=== PATIENT | female | born 1960 | race Caucasian/White ===

== ENCOUNTER 2022-01-15 01:17 | Day surgery (SDC) | payer BC, SELFPAY ==
[2021-12-27 14:31] VITALS: BMI 36.6
[2022-01-15 09:21] VITALS: BP 149/92; PULSE 92; RESP 20; TEMP 36.4; O2SAT 95
--- NOTE | 2022-01-15 09:26 | P.PNAN_ITS ---
Anes - Initial Pre Proc Eval Procedure: Operation Date: 01/15/22 10:30 Proposed Procedures p Screening Colonoscopy - Sarath Lao MD Date/Time: 01/15/22 09:26 Surgeon: Sarath Lao MD Pre Op Diagnosis: neoplasm screening Patient Data Age: 61 Gender: F Height: 1.65 m Weight: 105 kg Last Vital Signs Temp 36.4 C L 01/15/22 09:21 Pulse 92 01/15/22 09:21 Resp 20 01/15/22 09:21 BP 149/92 H 01/15/22 09:21 Pulse Ox 95 01/15/22 09:21 O2 Del Method Room Air 01/15/22 09:21 Allergies Allergy/AdvReac Type Severity Reaction Status Date / Time amoxicillin AdvReac Severe Nausea Verified 01/15/22 09:20 Home Medications Medication Instructions Recorded Confirmed Type atorvastatin 20 mg tablet 20 mg PO DAILY #90 tabs 11/09/21 12/27/21 Rx levothyroxine 137 mcg tablet 137 mcg PO DAILY #90 tabs 11/09/21 12/27/21 Rx (Levo-T) lisinopril 20 1 tablet PO DAILY #90 tabs 11/09/21 12/27/21 Rx mg-hydrochlorothiazide 12.5 mg tablet Patient hx anesthesia problems: none Family hx anesthesia problems: none Results Review: All pre-operative results and documents have been reviewed as part of the pre-o perative evaluation. [facility] Past Medical History Medical History Dyslipidemia Hypertension Hypothyroidism IUD (intrauterine device) in place Murmur, cardiac Periodic health assessment, general screening, adult Screening for colon cancer Social History Social History Smoking status: Never smoker Alcohol intake: current Drinks per week: 4 Alcohol use details: wine Substance use: never Living arrangements: with family Gender identity (if verbalized by the patient): Female Spiritual care concerns: No Anes - Eval Final PreProcedure Day of Procedure 01/15/22 09:26 Patient weight: obese Heart: regular rate and rhythm Lungs: clear to auscultation Airway: Mallampati scale class II Neurological: alert and oriented Last oral intake: >/= 8 hours ASA classification: II Emergent: no Anesthetic plan: proceed Anesthesia type and monitoring: general GIVS and standard monitoring Results Review: All pre-operative results and documents have been reviewed as part of the pre- operative evaluation. Informed Consent: The patient's anesthetic plan and its attendant risks and benefits were discussed with the patient/family/POA. Questions were solicited and answers provided to the satisfaction of the patient/family/POA.
[2022-01-15] MEDS: LACTATED RINGERS 1,000 ML 150 ML IV CONT (09:29)
--- NOTE | 2022-01-15 09:46 | PM.HPGS ---
History of Present Illness History of Present Illness Consent: Risks, benefits, and alternatives have been discussed and questions answered. Patient agrees to proceed with procedure. Chief complaint: neoplasm screening Narrative: Jigna Hightower is a 61 year old female presents for screening colonoscopy. Patient's current weight appetite and bowel movements are normal. She denies abdominal pain. She has had no bleeding. Family history is significant for grandparents with colon cancer. There are no first-degree relatives it we are aware of with polyps or cancer. Patient presents today for neoplasia screening. Review of Systems Review of Systems: Review of systems noncontributory. [facility] Past Medical History Medical History Dyslipidemia Hypertension Hypothyroidism IUD (intrauterine device) in place Murmur, cardiac Periodic health assessment, general screening, adult Screening for colon cancer Social History Social History Smoking status: Never smoker Alcohol intake: current Drinks per week: 4 Alcohol use details: wine Substance use: never Living arrangements: with family Gender identity (if verbalized by the patient): Female Spiritual care concerns: No Meds Home Medications and Allergies Home Medications Medication Instructions Recorded Confirmed Type atorvastatin 20 mg tablet 20 mg PO DAILY #90 tabs 11/09/21 12/27/21 Rx levothyroxine 137 mcg tablet 137 mcg PO DAILY #90 tabs 11/09/21 12/27/21 Rx (Levo-T) lisinopril 20 1 tablet PO DAILY #90 tabs 11/09/21 12/27/21 Rx mg-hydrochlorothiazide 12.5 mg tablet Allergies Allergy/AdvReac Type Severity Reaction Status Date / Time amoxicillin AdvReac Severe Nausea Verified 01/15/22 09:20 Vital Signs Vital Signs - 24 hr 01/15/22 09:21 Temperature 97.5 F L Pulse Rate 92 Respiratory Rate 20 Blood Pressure 149/92 H Pulse Oximetry 95 Oxygen Delivery Room Air Exam Narrative: Physical exam reveals patient to be alert. Vital signs stable. HEENT exam is unremarkable. Patient is anicteric. Lungs are clear to auscultation and percussion. Heart is without murmur or extra sounds. Abdomen bowel sounds are present soft nontender with no organomegaly. Digital external rectal exam is normal. Assessment and Plan Assessment and plan (1) Screening for colon cancer: Code(s): Z12.11 - Encounter for screening for malignant neoplasm of colon Status: Acute Assessment and Plan: Patient presents for neoplasia screening colonoscopy. Appears to be at average risk for colon polyps. Further recommendations may be given after endoscopy.
[2022-01-15 10:12] VITALS: BP 97/53; PULSE 74; RESP 21; O2SAT 96
[2022-01-15 10:21] VITALS: BP 118/63; PULSE 68; RESP 18; O2SAT 98
[2022-01-15 10:31] VITALS: BP 145/93; PULSE 73; RESP 16; O2SAT 100
== END 2022-01-15 10:41 | disposition home or self-care (01) ==
PROVIDERS: PCP Physician Assistant Medical; Visit Provider Internal Medicine Gastroenterology
PROC: 0DJD8ZZ Inspection of Lower Intestinal Tract, Via Natural or Artificial Opening Endoscopic (ICD-10-PCS; CPT 45378; principal; 2022-01-15 10:30)
DX: Z12.11 Encounter for screening for malignant neoplasm of colon (principal); K57.30 Diverticulosis of large intestine without perforation or abscess without bleeding; K64.8 Other hemorrhoids; I10 Essential (primary) hypertension; E78.5 Hyperlipidemia, unspecified; E03.9 Hypothyroidism, unspecified; E66.9 Obesity, unspecified; Z68.38 Body mass index [BMI] 38.0-38.9, adult
CPT/HCPCS: 45378; J2001; J2704; J7120

== ENCOUNTER 2022-05-07 15:27 | Outpatient (CLI) | payer BC, SELFPAY ==
--- NOTE | ~2022-05-07 | US_ITS ---
Pelvic ultrasound. Clinical History: IUD Technique: Realtime transabdominal and transvaginal scanning of the pelvis was performed. Color flow Doppler and Doppler spectral analysis were performed. Findings: The uterus is retroverted. IUD is in satisfactory position in the endometrial cavity. The e ndometrial stripe has a thickness of approximately 5 mm. Small amount of fluid present in the endomet rial cavity. Exophytic fibroid measures 2.6 cm in diameter. Additional larger exophytic fibroid measu res 4.6 cm in maximum diameter. There are probable additional ill-defined fibroids present. Neither ovary visualized. No other adnexal mass seen. There is no evidence of free fluid in the cul de sac. Impression: IUD in satisfactory position, with small amount of fluid in the endometrial cavity. Multiple uterine fibroids, as detailed above. Reviewed, dictated and finalized at location . Impression: IUD in satisfactory position, with small amount of fluid in the endometrial cav ity. Multiple uterine fibroids, as detailed above.
== END 2022-05-07 15:28 | disposition home or self-care (01) ==
PROVIDERS: PCP Physician Assistant Medical; Visit Provider Obstetrics & Gynecology
DX: Z30.431 Encounter for routine checking of intrauterine contraceptive device (principal); D25.9 Leiomyoma of uterus, unspecified
CPT/HCPCS: 76830; 76856

== ENCOUNTER 2022-06-14 09:13 | Outpatient (CLI) | payer BC, SELFPAY ==
--- NOTE | ~2022-06-14 | MM_ITS ---
EXAMINATION: MM screening haris BI w skye HISTORY: Screening mammogram TECHNIQUE: Craniocaudal and mediolateral oblique 3-D tomosynthesis images were obtained and synthetic 2-D images were generated. CAD analysis was submitted and interpreted. COMPARISON: No prior mammogram is available for comparison at this institution. BREAST PARENCHYMAL COMPOSITION: The breasts are almost entirely fatty. FINDINGS: There is no evidence of suspicious mass, calcification, or architectural distortion to sugg est malignancy in either breast. There has been no suspicious interval change. IMPRESSION: 1. No mammographic evidence of malignancy. 2. Recommend routine screening mammography in one year. BI-RADS Category 1: Negative Reviewed, dictated and finalized at location A.
--- NOTE | ~2022-06-14 | DEXA_ITS ---
Bone Density Report Name: DG GRAVES Age: 61 Sex: Female Ethnicity: White Date of : 1960 Indication: postmenopausal; screening for osteoporosis; height loss; Referring Provider: CAYLA WOLFF Study: Bone densitometry was performed. Exam Date: June 14, 2022 Accession number: [id number] Bone Density: Region BMD T-score Z-score Classification AP Spine(L1-L4) 1.319 2.5 4.0 Normal Femoral Neck (Left) 0.874 0.2 1.6 Normal Total Hip (Left) 1.093 1.2 2.3 Normal Femoral Neck (Right) 0.788 -0.6 0.8 Normal Total Hip (Right) 1.056 0.9 2.0 Normal Total Hip Mean 1.074 1.1 2.2 Normal World Health Organization criteria for BMD impression classify patients as: Normal (T-score at or above -1.0), Osteopenia (T-score between -1.0 and -2.5), or Osteoporosis (T-score at or below -2.5). 10-year Fracture Risk: FRAX not reported because: All T-scores for Spine Total, Hip Total, Femoral Neck at or above -1.0 Clinical Information Provided by Patient: Patient maximum height was 65 Menopause Age: 59 No regular weight bearing exercise Drinks caffeinated beverages Onset of menses at age 12 Number of children 0 Impression: The patient has normal bone mass. Discussion: BONE DENSITY IS ABOVE THE MINIMUM DESIRABLE LEVEL AT ALL SKELETAL SITES TESTED. This patient?s bone mineral density is above the minimum desirable level (T-score -1.0 or better) at all sites measured. The patient should follow a healthful lifestyle (good nutrition with adequate calcium and vitamin D, and appropriate weight-bearing exercise). Follow-Up: Consider repeating this study in 5 years or sooner if there is some new clinical indication. Reported by: JENNIFER on 06/14/2022 9:40:00 AM. Reviewed, dictated and finalized at location A. [facility]
== END 2022-06-14 09:14 | disposition home or self-care (01) ==
LOC: ANHIMG 09:13
PROVIDERS: PCP Physician Assistant Medical; Visit Provider Obstetrics & Gynecology
DX: Z12.31 Encounter for screening mammogram for malignant neoplasm of breast (principal); Z78.0 Asymptomatic menopausal state
CPT/HCPCS: 77063; 77067; 77080

== ENCOUNTER 2022-06-24 01:20 | Day surgery (SDC) | payer BC, SELFPAY ==
[2022-06-14 14:21] VITALS: BMI 40.7
--- NOTE | 2022-06-14 14:25 | PC.NURSE ---
Report to the Outpatient Waiting Room, entrance under the green pavilion located off [facility], at time 6:00 on date 06/24/22. Planned Procedure Time: 7:30. Time changes happen often and if your time is changed the preop area will call you the afternoon before. - You and your visitor will be asked to self-screen and do not enter if you have any COVID symptoms. - A mask is optional within the hospital at this time. Patients may have clear liquids (water, carbonated beverages, clear teas, apple juice) until 3 hours prior to surgery (4:30) with a maximum of 20 ounces. - No food from midnight until time of surgery Take the following medications with a SIP of water the morning of surgery: LEVOTHYROXINE, ANTIBIOTIC IF STILL TAKING DO NOT STOP ANY OF YOUR OTHER PRESCRIPTION MEDICATIONS PRIOR TO SURGERY EXCEPT THE FOLLOWING Medications to discontinue per physician: N/A Date to take last dose: N/A Please no make-up, nail tongan, hairspray, perfume, deodorant, or body powder the day of surgery. No jewelry (including any body piercings) or valuables the day of surgery, leave them at home. Please take a shower or bath the night before, or the morning of, surgery with an antibacterial soap. Wear comfortable, loose fitting clothing. - Jewelry must be removed prior to entering the operating room. Rings and piercings that are not removed may be cut off. - The hospital will not accept responsibility for valuables. - Please leave all valuables, including medications, at home the day of surgery. If you are going home after surgery, a licensed screw driver operator must drive you home. - NO public transportation without another adult if you receive anesthesia. - We recommend that an adult stay with you for 24 hours following discharge. - We also recommend that you do not drive, make important decision, drink alcoholic beverages, or take any drugs that were not prescribed by your health care provider for at least 24 hours after your discharge time. Follow any additional instructions given to you from your surgeon. If you or anyone in your household have experienced Covid symptoms in the past week, please notify your surgeon or the nurse liaison at the phone number below for possible testing. Telephone instructions given to PT - MAKENNA GRAVES and asked if any additional questions and then verbalized understanding. Patient advised to call surgeon office or pre surgery nurse liaison [phone] if any additional questions.
--- NOTE | 2022-06-23 20:12 | PM.IMHP ---
H&P: HPI History of Present Illness Date/Time: 06/23/22 20:12 Chief Complaint: Retained IUD Narrative: Patient with an Paragard IUD. Attempted removal in office initially and unsuccessful, attempted a second time in office with cervical block and ultrasound guided and the IUD felt to be impacted in uterus, would not bulge. The string was seen but the second time the strings avulsed. Discussed with her that it feels like the IUD may be scarred/impacted inside since it appears to be in correct location. Since unable to remove in office then will need to remove by hysteroscopy which she agrees to. Review of Systems Review of Systems: All systems reviewed & are unremarkable except as noted in HPI and below Cardiovascular: Cardiovascular: Reports no additional cardiovascular complaints, Denies chest pain and Denies dyspnea Respiratory: Respiratory: Reports no additional respiratory complaints and Denies dyspnea Gastrointestinal: Gastrointestinal: Reports abdominal pain, Denies change in bowel habits, Denies diarrhea, Denies nausea and Denies vomiting Genitourinary: Genitourinary: Reports pelvic pain Musculoskeletal: Musculoskeletal: Reports back pain Integumentary/Breasts: Skin/Breast: Reports system reviewed and no additional complaints, except as docu Neurologic: Reports system reviewed and no additional complaints, except as documented [facility] Past Medical History Medical History Dyslipidemia Hypertension Hypothyroidism IUD (intrauterine device) in place Murmur, cardiac Periodic health assessment, general screening, adult Screening for colon cancer Surgical History Surgical History History of ankle surgery [place] teeth removed Family History Family History Other History of cancer Hypertension Thyroid disorder Social History Social History Smoking status: Never smoker Alcohol intake: current Drinks per week: 6 Alcohol use details: wine Substance use: never Substance use type: does not use Lack of Transportation: No Lack of Food: Never True Current Housing: I Have Housing Concerned About Future Housing: No Difficulty Paying Gas/Electric Bills: No Difficulty Paying for Meds: No Currently Unemployed: No Education: High School Diploma/GED Difficulty w/ Childcare or Family Care: No Living arrangements: with family Occupation/Education: occupation Gender identity (if verbalized by the patient): Female Spiritual care concerns: No Meds Home Medications and Allergies Home Medications Medication Instructions Recorded Confirmed Type atorvastatin 20 mg tablet 20 mg PO DAILY #90 tabs 11/09/21 06/14/22 Rx lisinopril 20 1 tablet PO DAILY #90 tabs 11/09/21 06/14/22 Rx mg-hydrochlorothiazide 12.5 mg tablet levothyroxine 137 mcg tablet 137 mcg PO DAILY #90 tabs 04/09/22 06/14/22 Rx (Levo-T) azithromycin 250 mg tablet See Rx Instructions PO .COMPLEX #6 06/13/22 06/14/22 Rx (Zithromax Z-Edy) tabs Allergies Allergy/AdvReac Type Severity Reaction Status Date / Time amoxicillin AdvReac Severe Nausea Verified 06/14/22 14:20 Exam Const: Orientation/consciousness: oriented to person and oriented to place HENMT: Head: normal to inspection Eyes: General: appearance normal, both eyes and all related structures Resp: Effort & Inspection: normal respiratory effort Auscultation: clear to auscultation bilaterally Cardio: Rate: regular rate Rhythm: regular rhythm GI: Inspection: normal to inspection GI Palp: No Rebound tenderness present Neuro: General: oriented to person and oriented to place Cognition (Neuro): normal cognition Extrem: General: normal to inspection Psych: Appearance: grossly normal and well kempt [place]sey
[2022-06-24] MEDS: LACTATED RINGERS 1,000 ML 30 ML IV CONT (06:30)
--- NOTE | 2022-06-24 06:43 | P.PNAN_ITS ---
Anes - Initial Pre Proc Eval Procedure: Operation Date: 06/24/22 07:30 Proposed Procedures p Hysteroscopy with Removal of Intrauterine Device - Red Rajan MD Date/Time: 06/24/22 06:43 Surgeon: Red Rajan MD Pre Op Diagnosis: displace iud Patient Data Age: 61 Gender: F Height: 1.6 m Weight: 104.35 kg Allergies Allergy/AdvReac Type Severity Reaction Status Date / Time amoxicillin AdvReac Severe Nausea Verified 06/14/22 14:20 Home Medications Medication Instructions Recorded Confirmed Type atorvastatin 20 mg tablet 20 mg PO DAILY #90 tabs 11/09/21 06/14/22 Rx lisinopril 20 1 tablet PO DAILY #90 tabs 11/09/21 06/14/22 Rx mg-hydrochlorothiazide 12.5 mg tablet levothyroxine 137 mcg tablet 137 mcg PO DAILY #90 tabs 04/09/22 06/14/22 Rx (Levo-T) azithromycin 250 mg tablet See Rx Instructions PO .COMPLEX #6 06/13/22 06/14/22 Rx (Zithromax Z-Edy) tabs Patient hx anesthesia problems: none Family hx anesthesia problems: none Results Review: All pre-operative results and documents have been reviewed as part of the pre- operative evaluation. [facility] Past Medical History Medical History Dyslipidemia Hypertension Hypothyroidism IUD (intrauterine device) in place Murmur, cardiac Periodic health assessment, general screening, adult Screening for colon cancer Surgical History Surgical History History of ankle surgery [place] teeth removed Family History Family History Other History of cancer Hypertension Thyroid disorder Social History Social History Smoking status: Never smoker Alcohol intake: current Drinks per week: 6 Alcohol use details: wine Substance use: never Substance use type: does not use Lack of Transportation: No Lack of Food: Never True Current Housing: I Have Housing Concerned About Future Housing: No Difficulty Paying Gas/Electric Bills: No Difficulty Paying for Meds: No Currently Unemployed: No Education: High School Diploma/GED Difficulty w/ Childcare or Family Care: No Living arrangements: with family Occupation/Education: occupation Gender identity (if verbalized by the patient): Female Spiritual care concerns: No Anes - Eval Final PreProcedure Day of Procedure 06/24/22 06:43 Patient weight: morbidly obese Heart: regular rate and rhythm Lungs: clear to auscultation Airway: Mallampati scale class II Neurological: alert and oriented Last oral intake: >/= 8 hours ASA classification: III Emergent: no Anesthetic plan: proceed Anesthesia type and monitoring: general GIVS and standard monitoring Results Review: All pre-operative results and documents have been reviewed as part of the pre- operative evaluation. Informed Consent: The patient's anesthetic plan and its attendant risks and benefits were discussed with the patient/family/POA. Questions were solicited and answers provided to the satisfaction of the patient/family/POA.
[2022-06-24 07:00] VITALS: BP 142/82; PULSE 87; RESP 18; TEMP 36.4; O2SAT 95
[2022-06-24] MEDS: ACETAMINOPHEN 500 MG TABLET 1000 MG PO (07:00)
[2022-06-24 07:17] LABS: Anion Gap 8 mmol/L (8-16); Blood Urea Nitrogen 21 mg/dL (7-17); Carbon Dioxide 28 mmol/L (22-30); Chloride 102 mmol/L (98-107); Estimated CRCL calculation 84 ml/min; Estimated Glomerular Filt Rate > 60; Glucose 107 mg/dL (65-110); Potassium 4.1 mmol/L (3.4-5.0); Sodium 138 mmol/L (137-145)
--- NOTE | 2022-06-24 07:25 | WPDHPUPDATE1 ---
History and Physical Update Update Date/Time: 06/24/22 07:25 History and Physical has been reviewed, including an updated exam of the patient. There are NO changes in the patient's condition. Risks, benefits, and alternatives have been discussed and questions answered. Patient agrees to proceed with procedure.
[2022-06-24] MEDS: ceFAZolin SODIUM 1 GM VIAL 2 GM IV PUSH (07:30)
[2022-06-24] MEDS: LIDOCAINE HCL 1% LOCAL INJ 20 ML VIAL 10 ML INFILTRATE (07:49)
[2022-06-24 08:17] VITALS: BP 110/66; PULSE 74; RESP 16; O2SAT 94
[2022-06-24] MEDS: KETOROLAC 30 MG/ML VIAL (*BKC) IV PUSH (08:33)
[2022-06-24 08:45] VITALS: BP 122/77; PULSE 72; RESP 20
[2022-06-24 08:55] VITALS: BP 117/66; PULSE 60; RESP 20
--- NOTE | 2022-06-24 08:55 | W.PM.PROC2 ---
Procedure Note - Detailed Date of Procedure 06/24/22 Pre-op Diagnosis Retained iud Post-op Diagnosis Same Procedure Performed hysteroscopic removal of ParaGard IUD. Surgeon Red Rajan MD Anesthesia MAC and Local Indications Patient with an ParaGard IUD unable to remove in the office. Findings ParaGard IUD the middle part of the stem was densely imbedded in the upper cervix. The IUD came out in 2 parts the 1st part was the arm with the copper and the 2nd part distal arm which was imbedded in the upper cervix. Description of Procedure after informed consent was obtained patient was taken to operating room and adequate IV sedation was administered an exam under anesthesia was performed string not palpated consistent with her last exam. She was prepped and draped in sterile fashion and placed in low lithotomy position. Attention was turned to the vagina speculum was inserted single-tooth tenaculum placed on anterior lip of the cervix 10 cc of 1% lidocaine was injected at the cervical vaginal interface at 258 in 10 position. The cervix was sounded to an 8 [place] dilator the [employer] hysteroscope was inserted. Distending media was normal saline.The IUD was visualized normal in the cavity and the distal and part of the distal end was noted to be embedded in the cervix upper. The g per was used and the upper part of the stem was grabbed. The part of the IUD with the copper was retrieved. The hysteroscope was inserted again and the long-stem was still noted to be in the cavity and it appeared to be bent and the distal part part of the distal part was imbedded in the cervix though the string part and the knob with this was free. Hysteroscopic scissors were used to release some of the scar tissue due to the acute angle this was done but not a lot of the scar tissue was removed and also could not remove the stem with grab seen. The myoma forceps were also used to try to break some of the adhesions at this upper cervix and then the a work-in was used to try to break some adhesions of the upper cervix. The hysteroscope was inserted again and the stem appeared to be more free the stem was grasped at the distal segment that was in the cavity and with gentle traction the stem came out intact. The cavity was visualized and noted to be normal the tenaculum was removed hemostasis was noted speculum was removed patient tolerated procedure well. Fluid discrepancy was 240 cc this did not include the large amount of distending media that was on the floor. Estimated Blood Loss -5.0 Drains No Packing No Pathology None sent Complications No immediate complications Condition Stable Disposition PACU [facility] Billing Surgery - Charge Forward: Surgery Billing
== END 2022-06-24 09:02 | disposition home or self-care (01) ==
PROVIDERS: Anesthesiology; PCP Physician Assistant Medical; Visit Provider Obstetrics & Gynecology
PROC: 0U5B8ZZ Destruction of Endometrium, Via Natural or Artificial Opening Endoscopic (ICD-10-PCS; CPT 58563; principal; 2022-06-24 07:30)
DX: T83.39XA Other mechanical complication of intrauterine contraceptive device, initial encounter (principal); I10 Essential (primary) hypertension; E78.5 Hyperlipidemia, unspecified; E03.9 Hypothyroidism, unspecified; E66.01 Morbid (severe) obesity due to excess calories; Z68.39 Body mass index [BMI] 39.0-39.9, adult
CPT/HCPCS: 58562; 36415; 80048; A9270; J0690; J1100; J1885; J2250; J2405; J2704; J3010; J7120

== ENCOUNTER 2023-09-18 08:39 | Outpatient (CLI) | payer OTHER, SELFPAY ==
--- NOTE | ~2023-09-18 | MM_ITS ---
EXAMINATION: MM screening haris BI w skye HISTORY: Screening TECHNIQUE: Craniocaudal and mediolateral oblique 3-D tomosynthesis images were obtained and synthetic 2-D images were generated. CAD analysis was submitted and interpreted. COMPARISON: 06/14/2022 BREAST PARENCHYMAL COMPOSITION: Not dense: There are scattered areas of fibroglandular density. FINDINGS: There is no evidence of suspicious mass, calcification, or architectural distortion to sugg est malignancy in either breast. There has been no suspicious interval change. IMPRESSION: 1. No mammographic evidence of malignancy. 2. Recommend routine screening mammography in one year. BI-RADS Category 1: Negative Reviewed, dictated and finalized at location B.
== END 2023-09-18 08:40 | disposition home or self-care (01) ==
PROVIDERS: PCP Physician Assistant Medical; Visit Provider Obstetrics & Gynecology
DX: Z12.31 Encounter for screening mammogram for malignant neoplasm of breast (principal)
CPT/HCPCS: 77063; 77067

== ENCOUNTER 2024-10-27 08:22 | Outpatient (CLI) | payer OTHER, SELFPAY ==
--- NOTE | ~2024-10-27 | MM_ITS ---
EXAMINATION: MM screening haris BI w skye HISTORY: Screening TECHNIQUE: Craniocaudal and mediolateral oblique 3-D tomosynthesis images were obtained and synthetic 2-D images were generated. CAD analysis was submitted and interpreted. COMPARISON: Comparison to multiple prior studies sequentially, with oldest reviewed study dated , 06/14/2022 BREAST PARENCHYMAL COMPOSITION: The breasts are almost entirely fatty. FINDINGS: There is no evidence of suspicious mass, calcification, or architectural distortion to suggest malignancy in either breast. IMPRESSION: 1. No mammographic evidence of malignancy. 2. Recommend routine screening mammography in one year. BI-RADS Category 1: Negative Reviewed, dictated and finalized at location B.
--- NOTE | ~2024-10-27 | DEXA_ITS ---
Bone Density Report Name: DG GRAVES Age: 63 Sex: Female Ethnicity: White Date of : 1960 Indication: postmenopausal; screening for osteoporosis; height loss; Referring Provider: SRAAN JAVIER I. Study: Bone densitometry was performed. Exam Date: October 27, 2024 Accession number: [id number] Bone Density: Region BMD T-score Z-score Classification AP Spine(L1-L4) 1.388 3.1 4.8 Normal Femoral Neck (Left) 0.822 -0.2 1.2 Normal Total Hip (Left) 1.212 2.2 3.4 Normal Femoral Neck (Right) 0.787 -0.6 0.9 Normal Total Hip (Right) 1.110 1.4 2.5 Normal Total Hip Mean 1.161 1.8 3.0 Normal World Health Organization criteria for BMD impression classify patients as: Normal (T-score at or above -1.0), Osteopenia (T-score between -1.0 and -2.5), or Osteoporosis (T-score at or below -2.5). Previous Exams: Region Exam Age BMD T-score BMD Change BMD Change Date g/cm2 vs Baseline vs Previous AP Spine (L1-L4) 10/27/2024 63 1.388 3.1 0.070 (5.3%)* 0.070 (5.3%)* 06/14/2022 61 1.319 2.5 Total Hip(Left) 10/27/2024 63 1.212 2.2 0.119 (10.9%)* 0.119 (10.9%)* 06/14/2022 61 1.093 1.2 Total Hip(Right) 10/27/2024 63 1.110 1.4 0.054 (5.1%)* 0.054 (5.1%)* 06/14/2022 61 1.056 0.9 *Denotes significance at 95% confidence level, LSC for AP Spine = 0.022 g/cm2, LSC for Total Hip = 0.027 g/cm2 Clinical Information Provided by Patient: Has used the following medications: Vitamin D Patient maximum height was 65 Menopause Age: 59 Drinks caffeinated beverages Onset of menses at age 12 Number of children 0 Impression: The patient has normal bone mass. No significant bone loss was observed. Discussion: BONE DENSITY IS ABOVE THE MINIMUM DESIRABLE LEVEL AT ALL SKELETAL SITES TESTED. This patient?s bone mineral density is above the minimum desirable level (T-score -1.0 or better) at all sites measured. The patient should follow a healthful lifestyle (good nutrition with adequate calcium and vitamin D, and appropriate weight-bearing exercise). Follow-Up: Consider repeating this study in 5 years or sooner if there is some new clinical indication. Reported by: MARYANA on 10/27/2024 9:06:00 AM. Reviewed, dictated and finalized at location A.
--- OUTSIDE RECORDS SUMMARY | 2024-10-27 08:52 | XMS_ITS | Clinical Summary ---
Author Organization [facility] Address [facility]ly [facility] [place] [address] Care Team Providers Care Telesales Specialist Name Role Phone Kerry Sandhu Primary Care Provider [phone] Social History Tobacco Use Types Packs/Day Years Used Date Smoking Tobacco: Never Assessed Comments Unknown Sex and Gender Information Value Date Recorded Sex Assigned at Not on file Legal Sex Female 4:06 PM CDT Gender Identity Not on file Sexual Orientation Not on file Plan of Treatment Health Maintenance Due Date Last Done Comments Cervical Cancer Screening Pa p Smear (Age 30 to 64) Every 3 Years 1960 Colorectal Cancer Screening Colonoscopy (10 Years) 1960 Annual Physical 11/03/1963 Hepatitis C 1978 Pneumococcal Vaccine: 50+ Ye ars (1 of 2 - PCV) 11/03/1979 Cervical Cancer Screening Pa p with HPV Testing (Age 30 to 64) Every 5 Years 1990 Cervical Cancer Screening with HPV 1990 Mammogram Screening 2000 Zoster Vaccines (1 of 2) 2010 RSV Immunization or 60+ Years (1 - Risk 60-74 years 1-dose series) 2020 COVID-19 Vaccine ( - 2023-2 5 season) 2024 DTaP, Tdap and Td Vaccines ( 2 - Td or Tdap) 05/12/2033 05/13/2023 Meningococcal B Vaccine Aged Out No l onger eligible based on patient's age to complete this topic Meningococcal Vaccine Aged Out No ileana desi eligible based on patient's age to complete this topic RSV Immunizations Under 20 Months Aged Out No longer eligible based on patient's age to complete this topic Insurance [place] [id number] Care Teams Telesales Specialist Relationship Specialty Start Date End Date Kerry Sandhu PA [address] [place] [id number] PCP - General PHYSICIAN POWER SWITCHBOARD OPERATOR 11/20/23
== END 2024-10-27 08:23 | disposition home or self-care (01) ==
LOC: ANHFOHIMG 08:27
PROVIDERS: PCP Physician Assistant Medical; Visit Provider Physician Assistant Medical
DX: Z12.31 Encounter for screening mammogram for malignant neoplasm of breast (principal); E28.39 Other primary ovarian failure
CPT/HCPCS: 77063; 77067; 77080